=== PATIENT | male | born 2000 | race African-American/Black ===

== ENCOUNTER 2023-02-19 13:19 | Emergency (ER) | payer OTHER ==
[~2023-02-19] VITALS: Ht 188 cm; Wt 75.0 kg
[2023-02-19 13:36] VITALS: TEMP 98.6; O2SAT 100
[2023-02-19 13:54] LABS: CLARITY URINE CLEAR (CLEAR); COLOR URINE YELLOW (YELLOW); GLUCOSE URINE NEGATIVE (NEGATIVE); KETONES URINE NEGATIVE (NEGATIVE); LEUKOCYTE ESTERASE URINE NEGATIVE (NEGATIVE); NITRITE URINE NEGATIVE (NEGATIVE); OCCULT BLOOD URINE NEGATIVE (NEGATIVE); PROTEIN URINE NEGATIVE (NEGATIVE)
[2023-02-19] MEDS ORDERED: DOXY100C5 MT (13:55)
[2023-02-19] MEDS ORDERED: CEFTRIAXONE SODIUM 1 G/VIAL IM ONE (14:00)
[2023-02-19] MEDS ORDERED: KETOROLAC 30MG/ML VIAL IM ONE (14:45)
[2023-02-19 15:05] VITALS: BP 111/77; PULSE 65; RESP 16
[2023-02-22 04:09] LABS: CHLAMYDIA TRACHOMATIS NAA Negative (Negative); NEISSERIA GONORRHOEAE NAA Negative (Negative)
== END 2023-02-19 15:17 | disposition home or self-care (01) ==
LOC: ER 13:19
DX: Z11.3 Encounter for screening for infections with a predominantly sexual mode of transmission (principal)
CPT/HCPCS: 99284; 87491; 87591; 81003; 96372; J0696; J1885

== ENCOUNTER 2023-03-01 13:15 | Emergency (ER) | payer OTHER ==
[~2023-03-01] VITALS: Ht 188 cm; Wt 81.6 kg
[~2023-03-01 13:15] MED LIST: DOXY100C5 MT
[2023-03-01 13:27] VITALS: O2SAT 99
[2023-03-01] MEDS ORDERED: DOXY100T2 MT (13:44)
[2023-03-01] MEDS ORDERED: CEFTRIAXONE SODIUM 500 MG/VIAL IM ONE (13:45)
[2023-03-01 14:52] VITALS: BP 135/81; PULSE 88; RESP 16; TEMP 98.1
[2023-03-01 14:54] LABS: CLARITY URINE CLEAR (CLEAR); COLOR URINE YELLOW (YELLOW); GLUCOSE URINE NEGATIVE (NEGATIVE); KETONES URINE NEGATIVE (NEGATIVE); LEUKOCYTE ESTERASE URINE NEGATIVE (NEGATIVE); NITRITE URINE NEGATIVE (NEGATIVE); OCCULT BLOOD URINE NEGATIVE (NEGATIVE); PROTEIN URINE NEGATIVE (NEGATIVE); SPECIFIC GRAVITY URINE 1.027 (1.005-1.030)
== END 2023-03-01 14:56 | disposition home or self-care (01) ==
LOC: ER 13:15
DX: R30.0 Dysuria (principal)
CPT/HCPCS: 81003; 87086; 96372; 99283; J0696; Z7610

== ENCOUNTER 2023-03-09 11:12 | Emergency (ER) | payer MEDICAID, OTHER ==
[~2023-03-09] VITALS: Ht 188 cm; Wt 82.0 kg
[~2023-03-09 11:12] MED LIST changes: +DOXY100T2 MT
[2023-03-09 11:19] VITALS: O2SAT 100
[2023-03-09 13:55] LABS: CLARITY URINE CLEAR (CLEAR); COLOR URINE YELLOW (YELLOW); GLUCOSE URINE NEGATIVE (NEGATIVE); KETONES URINE NEGATIVE (NEGATIVE); LEUKOCYTE ESTERASE URINE NEGATIVE (NEGATIVE); NITRITE URINE NEGATIVE (NEGATIVE); OCCULT BLOOD URINE NEGATIVE (NEGATIVE); PROTEIN URINE NEGATIVE (NEGATIVE); SPECIFIC GRAVITY URINE 1.007 (1.005-1.030); UROBILINOGEN URINE 0.2 E.U./dL (0.2-1.0)
[2023-03-09 16:42] VITALS: BP 116/74; PULSE 82; RESP 20; TEMP 98.1
== END 2023-03-09 16:44 | disposition home or self-care (01) ==
LOC: ER 11:12
DX: N48.89 Other specified disorders of penis (principal)
CPT/HCPCS: 81003; 86592; 99283; Z7610